=== PATIENT | male | born 1960 | race Caucasian/White ===

== ENCOUNTER → 2023-08-19 06:04 | Outpatient (REF) | payer OTHER, SELFPAY ==
[2023-08-19 09:37] LABS: % Eosinophils 1.6 % (0-6); % Immature Granulocytes 0.5 % (0-0.5); % Lymphocytes 27.3 % (20.5-51.1); % Monocytes 14.6 % (1.7-9.3); Absolute Basophils 0.1 10^3/uL (0-0.2); Absolute Eosinophils 0.1 10^3/uL (0-0.7); Absolute Lymphocytes 2.3 10^3/uL (1.2-3.4); Absolute Monocytes 1.2 10^3/uL (0.1-0.6); Absolute Neutrophils 4.6 10^3/uL (1.4-6.5); Hematocrit 47.7 % (39.0-52.0); Hemoglobin 15.3 g/dL (13.0-18.0); Mean Corp Hgb Conc. 32.1 g/dL (33.0-37.0); Mean Corpuscular Hgb 31.7 pg (27.0-31.0); Mean Corpuscular Volume 98.8 fL (80.0-94.0); Mean Platelet Volume 10.1 fL (7.4-10.4); Nucleated Red Blood Cells % 0 % (-); Platelet Count 240 10^3/uL (130-400); Red Blood Cell Count 4.83 10^6/uL (4.70-6.10); Red Cell Dist. Width 13.7 % (11.5-14.5); White Blood Cell Count 8.3 10^3/uL (4.8-10.8)
[2023-08-19 12:18] LABS: Glycohemoglobin (HgbA1c) 5.6 % (4.0-5.6)
[2023-08-19 12:43] LABS: ALT (SGPT) 21 U/L (0-50); AST (SGOT) 19 U/L (17-59); Alkaline Phosphatase 42 U/L (38-126); Blood Urea Nitrogen 15 mg/dl (9-20); Calcium 9.5 mg/dl (8.4-10.2); Carbon Dioxide 22 mmol/L (22-30); Chloride 102 mmol/L (98-107); Glucose 102 mg/dl (70-99); Iron 81 ug/dl (49-181); Potassium 4.4 mmol/L (3.5-5.1); Sodium 137 mmol/L (135-145); Total Bilirubin 0.6 mg/dl (0.2-1.3); Total Protein 6.9 g/dl (6.3-8.2); eGFR > 60.00
[2023-08-19 12:52] LABS: Percent Saturation 31 % (20-50); Total Iron Binding Capacity 254 ug/dl (261-462)
[2023-08-19 14:55] LABS: CEA 3.42 ng/ml
[2023-08-22 15:47] LABS: Hemochromatosis Specimen Whole Blood
== END ==
LOC: HWLAB 06:04
PROVIDERS: ATTENDING PHYSICIAN Family Medicine
DX: R79.89 Other specified abnormal findings of blood chemistry (principal); R73.09 Other abnormal glucose; I10 Essential (primary) hypertension; E78.5 Hyperlipidemia, unspecified; R97.0 Elevated carcinoembryonic antigen [CEA]
CPT/HCPCS: 36415; 80053; 81256; 82378; 82728; 83036; 83540; 83550; 85025

== ENCOUNTER → 2023-10-01 12:58 | Outpatient (REF) | payer OTHER, SELFPAY ==
[2023-10-01 16:45] LABS: % Basophils 0.4 % (0-2); % Eosinophils 0.4 % (0-6); % Immature Granulocytes 0.4 % (0-0.5); % Lymphocytes 22.8 % (20.5-51.1); % Monocytes 9.5 % (1.7-9.3); % Neutrophils 66.5 % (42.2-75.2); Absolute Lymphocytes 2.2 10^3/uL (1.2-3.4); Absolute Monocytes 0.9 10^3/uL (0.1-0.6); Absolute Neutrophils 6.3 10^3/uL (1.4-6.5); Hematocrit 47.1 % (39.0-52.0); Hemoglobin 15.2 g/dL (13.0-18.0); Mean Corp Hgb Conc. 32.3 g/dL (33.0-37.0); Mean Corpuscular Hgb 31.7 pg (27.0-31.0); Mean Corpuscular Volume 98.3 fL (80.0-94.0); Mean Platelet Volume 10.2 fL (7.4-10.4); Nucleated Red Blood Cells % 0 % (-); Platelet Count 212 10^3/uL (130-400); Red Blood Cell Count 4.79 10^6/uL (4.70-6.10); Red Cell Dist. Width 13.2 % (11.5-14.5); White Blood Cell Count 9.5 10^3/uL (4.8-10.8)
[2023-10-01 17:12] LABS: FSH 4.1 mIU/ml (1.55-9.74); Luteinizing Hormone 5.12 mIU/ml (1.24-7.80)
[2023-10-01 17:27] LABS: Estradiol 35.4 pg/ml (5.4-66)
[2023-10-03 18:59] LABS: % Free Testosterone 1.6 % (1.6-2.9); Free Testosterone 62 pg/mL (47-244); Sex Hormone Binding Globulin 43 nmol/L (19-76); Total Testosterone 392 ng/dL (300-720)
== END ==
LOC: HWLAB 12:58
PROVIDERS: ATTENDING PHYSICIAN Internal Medicine
DX: Z00.00 Encounter for general adult medical examination without abnormal findings (principal); E29.1 Testicular hypofunction; N52.9 Male erectile dysfunction, unspecified
CPT/HCPCS: 36415; 82670; 83001; 83002; 84146; 84270; 84402; 84403; 85025

== ENCOUNTER → 2024-03-08 10:56 | Outpatient (REF) | payer OTHER, SELFPAY ==
[2024-03-08 16:18] LABS: % Basophils 0.7 % (0-2); % Immature Granulocytes 0.4 % (0-0.5); % Lymphocytes 18.4 % (20.5-51.1); % Monocytes 11.4 % (1.7-9.3); % Neutrophils 68.1 % (42.2-75.2); Absolute Basophils 0.1 10^3/uL (0-0.2); Absolute Eosinophils 0.1 10^3/uL (0-0.7); Absolute Lymphocytes 1.8 10^3/uL (1.2-3.4); Absolute Monocytes 1.1 10^3/uL (0.1-0.6); Absolute Neutrophils 6.7 10^3/uL (1.4-6.5); Hematocrit 52.7 % (39.0-52.0); Hemoglobin 17.7 g/dL (13.0-18.0); Mean Corp Hgb Conc. 33.6 g/dL (33.0-37.0); Mean Corpuscular Hgb 32.6 pg (27.0-31.0); Mean Corpuscular Volume 97.1 fL (80.0-94.0); Mean Platelet Volume 10.4 fL (7.4-10.4); Nucleated Red Blood Cells % 0 % (-); Platelet Count 189 10^3/uL (130-400); Red Blood Cell Count 5.43 10^6/uL (4.70-6.10); Red Cell Dist. Width 13.6 % (11.5-14.5); White Blood Cell Count 9.8 10^3/uL (4.8-10.8)
[2024-03-08 16:23] LABS: Urine Albumin Negative (Neg - Trace); Urine Bilirubin Negative (Negative); Urine Character Clear (Clear); Urine Color Yellow; Urine Glucose Negative (Negative); Urine Ketone Negative (Negative); Urine Leukocyte Negative (Negative); Urine Nitrite Negative (Negative); Urine Occult Blood Negative (Negative); Urine Urobilinogen Negative (Neg - 1+)
[2024-03-08 17:30] LABS: ALT (SGPT) 22 U/L (0-50); AST (SGOT) 29 U/L (17-59); Albumin 4.2 g/dl (3.5-5.0); Alkaline Phosphatase 31 U/L (38-126); Blood Urea Nitrogen 12 mg/dl (9-20); Calcium 9.3 mg/dl (8.4-10.2); Carbon Dioxide 28 mmol/L (22-30); Chloride 99 mmol/L (98-107); Creatine Phosphokinase 231 U/L (55-170); Glucose 99 mg/dl (70-99); HDL Cholesterol 61 mg/dl; Iron 180 ug/dl (49-181); LDL Cholesterol, Calculated 40 mg/dl; Magnesium 1.7 mg/dl (1.6-2.3); Phosphorus 2.2 mg/dl (2.5-4.5); Potassium 4.5 mmol/L (3.5-5.1); Sodium 137 mmol/L (135-145); Total Bilirubin 1.8 mg/dl (0.2-1.3); Total Cholesterol 114 mg/dl (50-199); Total Protein 6.9 g/dl (6.3-8.2); Triglyceride 67 mg/dl (10-149); Uric Acid 5.5 mg/dl (3.5-8.5); Very Low Density Lipoprotein 13 mg/dl (0-30); eGFR > 60.00
[2024-03-08 17:39] LABS: Percent Saturation 60 % (20-50); Total Iron Binding Capacity 300 ug/dl (261-462)
[2024-03-08 20:40] LABS: CEA 3.64 ng/ml
[2024-03-08 20:53] LABS: Ferritin 37.8 ng/ml (17.9-464.0)
[2024-03-09 09:02] LABS: Glycohemoglobin (HgbA1c) 5.4 % (4.0-5.6)
== END ==
LOC: HWLAB 10:56
PROVIDERS: ATTENDING PHYSICIAN Family Medicine
DX: I10 Essential (primary) hypertension (principal); E78.5 Hyperlipidemia, unspecified; Z12.5 Encounter for screening for malignant neoplasm of prostate; R73.09 Other abnormal glucose; R79.89 Other specified abnormal findings of blood chemistry; R97.0 Elevated carcinoembryonic antigen [CEA]
CPT/HCPCS: 36415; 80053; 80061; 81003; 82378; 82550; 82728; 83036; 83540; 83550; 83735; 84100; 84550; 85025; G0103

== ENCOUNTER → 2024-04-16 10:45 | Outpatient (REF) | payer OTHER, SELFPAY ==
[2024-04-16 12:29] LABS: Iron 106 ug/dl (49-181)
[2024-04-16 12:40] LABS: Percent Saturation 35 % (20-50); Total Iron Binding Capacity 300 ug/dl (261-462)
[2024-04-16 13:06] LABS: Ferritin 36.7 ng/ml (17.9-464.0)
== END ==
LOC: HWLAB 10:45
PROVIDERS: ATTENDING PHYSICIAN Internal Medicine Hematology & Oncology; FAMILY PHYSICIAN Family Medicine
DX: D68.51 Activated protein C resistance (principal); D68.52 Prothrombin gene mutation; D47.2 Monoclonal gammopathy; D75.89 Other specified diseases of blood and blood-forming organs; R79.89 Other specified abnormal findings of blood chemistry
CPT/HCPCS: 82728; 83540; 83550

== ENCOUNTER 2024-06-15 12:41 | Emergency (ER) | payer OTHER, SELFPAY ==
[2024-06-15 13:17] VITALS: BP 142/105
--- NOTE | 2024-06-15 13:20 | ED.GENMED ---
ED Provider Triage
<Ama Garland NP - Last Filed: 06/15/24 13:22>
-
Patient seen by provider in Triage?: Seen in Triage
Attestation: A medical screening examination has been initiated by a qualified medical provider. Based on the assessment performed at this time, it has been determined that an emergent medical condition may exist and the patient has been informed
that further medical evaluation and possible additional diagnostic testing may be needed.
HPI: 64-year-old male with history of asbestosis, COPD, DVT on Eliquis, factor II and V deficiency presents for left chest pain and fluttering, racing feeling in his heart. This has been happening off and on for about 2 weeks. Today the pain and
fluttering was worse.
GENERAL: Alert , in no apparent distress
EYE: No visual abnormalities.
NECK: Trachea midline
ENT: No visible abnormalities.
LUNGS: No acute respiratory distress
NEUROLOGICAL: Alert and oriented
SKIN: Skin intact. No visible changes.
MUSCULOSKELETAL: Moving extremities normally
PSYCH: Normal and appropriate interaction.
This is a medical evaluation conducted in person to initiate diagnostic evaluation and provide initial therapeutics. Please see further documentation by the treating clinician.
History of Present Illness
<Ama Garland ENGINE WATCHMAN - Last Filed: 06/15/24 13:22>
General
Chief Complaint: Heart Rate Problem
Time Seen by Provider: 06/15/24 15:53
<Danny Norwood PA-C - Last Filed: 06/15/24 19:37>
General
Source: patient
History of Present Illness
History of Present Illness:
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
fluttering sensation in his chest and chest discomfort for the last 2 weeks, not any worse today however patient went to urgent care for further evaluation and was recommended to come to the ER due to his past medical history. Patient notes no
change in his medications, recent illnesses, fevers, cough, current chest pain, shortness of breath, abdominal pain or any other concerns. He does report he saw his primary care provider a little over 1 week ago but did not bring up the symptoms at
time of that visit. Patient follows with pulmonology, Dr. Vázquez, and visitor services assistant, Dr. Melgar, but has not contacted them about his current symptoms but notes the last time he saw them he was 'given a clean bill of health'.
Past History
<Ama Garland ENGINE WATCHMAN - Last Filed: 06/15/24 13:22>
Past History
ED Past Medical History: COPD and Other (DVT R leg, Factor II and V blood dyscrasia, peripheral vascular disease); Negative HTN, Hypercholesterolemia or NIDDM
ED Past Surgical History: Other (Spinal fusion)
Social History
Tobacco: Former smoker
Alcohol: Occasional
Personal:
Living: with family
<Danny Norwood PA-C - Last Filed: 06/15/24 19:37>
Past History
ED Past Medical History: CAD and Psychiatric
ED Past Surgical History: Cardiac, Tonsilectomy and Urological
Social History
Drug: None
Review of Systems
<Danny Norwood PA-C - Last Filed: 06/15/24 19:37>
Review of Systems
All Other Systems: ROS reviewed and negative except as documented in HPI and ROS
Phy Exam
<Danny Norwood PA-C - Last Filed: 06/15/24 19:37>
Physical Exam
Physical Exam:
GENERAL: Alert , in no apparent distress
EYE: Clear conjunctiva
NECK: Supple
ENT: o/p clr, mmm.
CARDIAC: Regular rate and rhythm, occasional ectopy/PVC on telemetry.
LUNGS: Clear breath sounds bilaterally although slightly restricted bilaterally, no acute respiratory distress, no wheezes/rales/rhonchi
ABDOMEN: Soft, without focal tenderness, no r/g, no cvat
NEUROLOGICAL: Alert and oriented
SKIN: Warm and dry, skin intact.
MUSCULOSKELETAL: No edema, well perfused.
PSYCH: Normal and appropriate interaction.
Scores
<Danny Norwood PA-C - Last Filed: 06/15/24 19:37>
Heart Score for Chest Pain Patients
STEMI patient?: No
History: Slightly or Non-Suspicious
ECG: Normal
Age: >/= 65 years
Risk Factors: >/= 3 Risk Factors or History of CAD
Troponin: </= Normal Limit
Heart Score for Chest Pain Patients: 4
Heart Score Risk: 20.3% MACE over next 6 weeks
Course
<Ama Garland NP - Last Filed: 06/15/24 13:22>
Orders/Labs/Results
Orders:
Orders
06/15/24 12:42
Electrocardiogram (*1) Urgent
Reason for Study: Tachycardia
EKG- Treatment ONCE
06/15/24 13:27
Comprehensive Metabolic Panel Urgent
Prothrombin Time Urgent
Troponin I Urgent
06/15/24 13:28
Complete Blood Count/With Diff Urgent
06/15/24 16:11
CR Chest - 2 Views Urgent
Comment:
Reason For Exam: chest pain, palpitations
06/15/24 16:43
Troponin I Urgent
Abnormal Lab Results
06/15/24 06/15/24
13:27 13:28
Hgb 18.6 H g/dL
(13.0-18.0)
Hct 54.0 H %
(39.0-52.0)
MCV 94.4 H fL
(80.0-94.0)
MCH 32.5 H pg
(27.0-31.0)
Abs Immat Gran (auto) 0.1 H 10^3/uL
(0-0.05)
Absolute Neuts (auto) 6.9 H 10^3/uL
(1.4-6.5)
Absolute Monos (auto) 1.0 H 10^3/uL
(0.1-0.6)
Immature Gran % 0.6 H %
(0-0.5)
Monocytes % 9.6 H %
(1.7-9.3)
Glucose 111 H mg/dl
(70-99)
06/15/24 13:28
06/15/24 13:27
Vital Signs
Initial and Last Documented VS:
Initial Vital Signs
Temp Pulse Resp BP Pulse Ox
97.9 F 90 17 142/105 99
06/15/24 13:17 06/15/24 13:17 06/15/24 13:17 06/15/24 13:17 06/15/24 13:17
Last Documented Vital Signs
Temp Pulse Resp BP Pulse Ox
97.9 F 82 18 147/90 98
06/15/24 13:17 06/15/24 15:33 06/15/24 15:33 06/15/24 15:33 06/15/24 15:44
<Danny Norwood PA-C - Last Filed: 06/15/24 19:37>
Orders/Labs/Results
Orders:
Orders
06/15/24 12:42
Electrocardiogram (*1) Urgent
Reason for Study: Tachycardia
EKG- Treatment ONCE
06/15/24 13:27
Comprehensive Metabolic Panel Urgent
Prothrombin Time Urgent
Troponin I Urgent
06/15/24 13:28
Complete Blood Count/With Diff Urgent
06/15/24 16:11
CR Chest - 2 Views Urgent
Comment:
Reason For Exam: chest pain, palpitations
06/15/24 16:43
Troponin I Urgent
Abnormal Lab Results
06/15/24 06/15/24
13:27 13:28
Hgb 18.6 H g/dL
(13.0-18.0)
Hct 54.0 H %
(39.0-52.0)
MCV 94.4 H fL
(80.0-94.0)
MCH 32.5 H pg
(27.0-31.0)
Abs Immat Gran (auto) 0.1 H 10^3/uL
(0-0.05)
Absolute Neuts (auto) 6.9 H 10^3/uL
(1.4-6.5)
Absolute Monos (auto) 1.0 H 10^3/uL
(0.1-0.6)
Immature Gran % 0.6 H %
(0-0.5)
Monocytes % 9.6 H %
(1.7-9.3)
Glucose 111 H mg/dl
(70-99)
06/15/24 13:28
06/15/24 13:27
Vital Signs
Initial and Last Documented VS:
Initial Vital Signs
Temp Pulse Resp BP Pulse Ox
97.9 F 90 17 142/105 99
06/15/24 13:17 06/15/24 13:17 06/15/24 13:17 06/15/24 13:17 06/15/24 13:17
Last Documented Vital Signs
Temp Pulse Resp BP Pulse Ox
97.9 F 82 18 147/90 98
06/15/24 13:17 06/15/24 15:33 06/15/24 15:33 06/15/24 15:33 06/15/24 15:44
<Danny Norwood PA-C - Last Filed: 06/15/24 19:37>
MDM/Problems Addressed
Differential Diagnosis Includes:
Cardiac dysrhythmia, PVCs/PAC, valvular dysfunction, ACS, COPD, PE considered however given patient on Eliquis combined with presenting symptoms less suspicious for this, less concern for anxiety/panic disorder although patient does note he has been
anxious with the symptoms
MDM/Problems Addressed:
64-year-old male presenting to the ER for evaluation of palpitations and chest discomfort intermittently over the last 2 weeks. Urgent care patient to the ER today. Patient found to be mildly hypertensive on arrival although improved at time of my
exam. He is otherwise hemodynamically stable. Patient with CAD risk factors due to known CAD status post CABG. Initial troponin negative. Labs otherwise reassuring. Will repeat troponin and obtain chest x-ray. Will also notify patient's
visitor services assistant with anticipation of close outpatient follow-up via the chest pain hotline.
Chronic conditions affecting care: CAD and COPD
<Danny Norwood PA-C - Last Filed: 06/15/24 19:37>
*Radiology
Radiology exam reviewed: preliminary read by ED provider (Normal chest x-ray)
*Pulse Oximetry
Patient hypoxic: no
*EKG
Interpreted by ED Provider?: Yes
Heart Rate: 82
Rate: normal
Rhythm: sinus and PVC's
[place]: left axis deviation
QRS Pattern: right bundle branch block
*Critical Care Note
Total Time (30-74mins, 75-104mins- exclusive of procedures): Not Applicable
<Danny Norwood PA-C - Last Filed: 06/15/24 19:37>
Patient Management
Discussion with other providers: System Planning Engineer
Escalation/DeEscalation of care consider admission/obs:
Patient's repeat troponin and chest x-ray are unremarkable. I did notify his visitor services assistant, Dr. Melgar, who will help expedite outpatient follow-up. Patient aware of return precautions to the ER.
ED Attending Note
<Ama Garland ENGINE WATCHMAN - Last Filed: 06/15/24 13:22>
-
Portions of this chart may have been created with voice recognition software.� Occasional wrong word or��sound alike� substitutions may have occurred due to the inherent limitations of voice recognition software.
Discharge Plan
Departure
Patient Disposition: Home (Routine Discharge)
Date of Disposition: 06/15/24
Time of Disposition: 17:19
Patient with high blood pressure during this ER visit?: Yes
Discharge Problem:
Heart palpitations, Frequent PVCs
Instructions: Chest Pain DCA Follow Up
Prescriptions:
No Action
alprazolam 1 MG tablet
0.5 - 1 mg PO DAILYPRN PRN (Reason: anxiety)
oxycodone 15 MG tablet
15 mg PO TIDPRN PRN (Reason: neck pain)
umeclidinium [Incruse Ellipta] 62.5 MCG blister with device
2 puff IH DAILY
Breo Ellipta 100-25 Mcg INH
2 puff inhalation DAILY
Patient Comments:
dose unconfirmed
Melatonin
1 tab PO HS PRN (Reason: sleep)
furosemide 40 MG tablet
40 mg PO DAILY Qty: 7 0RF
Rx Instructions:
take for 7 days then stop
acetaminophen 325 MG tablet
650 mg PO Q4HPRN PRN (Reason: HEADACHE OR FEVER > 101F) 0RF
diltiazem HCl 180 MG capsule,extended release 24hr
180 mg PO DAILY Qty: 30 0RF
Rx Instructions:
take for 30 days then stop
aspirin 81 MG tablet,delayed release (DR/EC)
81 mg PO DAILY 0RF
potassium chloride [Klor-Con M20] 20 MEQ tablet,ER particles/crystals
20 meq PO DAILY Qty: 7 0RF
Rx Instructions:
take for 7 days then stop
pantoprazole 40 MG tablet,delayed release (DR/EC)
40 mg PO DAILY Qty: 30 0RF
Rx Instructions:
take for 30 days then stop
rosuvastatin 10 MG tablet
10 mg PO QPM Qty: 90 1RF
metoprolol tartrate 25 MG tablet
25 mg PO BID Qty: 180 1RF
apixaban [Eliquis] 5 MG tablet
5 mg PO BID Qty: 60 0RF
Rx Instructions:
take for 30 days, then resume previously prescribed dose of 2.5mg BID
albuterol sulfate 1 PUFF HFA aerosol inhaler
1 puff inhalation R Q4HPRN PRN (Reason: asthma exacerbation) Qty: 1 3RF
Referrals:
UNKNOWN - PT DOES,NOT KNOW [Unknown Provider] -
Interventions
Interventions:
*Risk Screen - Suicide Last Done: 06/15/24 13:18
*General Assessment Last Done: 06/15/24 13:18
*Neglect/Abuse Screening Last Done: 06/15/24 13:18
ED- Fall Risk Assessment Last Done: 06/15/24 15:44
*ED COVID-19 Vaccine History Last Done: 06/15/24 13:18
*Nursing Disposition Last Done: 06/15/24 17:30
ED- Cardiac Assessment Last Done: 06/15/24 15:44
ED- Pulmonary Assessment Last Done: 06/15/24 15:44
Discharge Date and Time
Discharge Date/Time: 06/15/24 17:30
Print Language: [place]
[2024-06-15 13:43] LABS: % Basophils 0.9 % (0-2); % Eosinophils 0.7 % (0-6); % Immature Granulocytes 0.6 % (0-0.5); % Lymphocytes 21.1 % (20.5-51.1); % Monocytes 9.6 % (1.7-9.3); % Neutrophils 67.1 % (42.2-75.2); Absolute Basophils 0.1 10^3/uL (0-0.2); Absolute Eosinophils 0.1 10^3/uL (0-0.7); Absolute Immature Granulocytes 0.1 10^3/uL (0-0.05); Absolute Lymphocytes 2.2 10^3/uL (1.2-3.4); Absolute Neutrophils 6.9 10^3/uL (1.4-6.5); Hemoglobin 18.6 g/dL (13.0-18.0); Mean Corp Hgb Conc. 34.4 g/dL (33.0-37.0); Mean Corpuscular Hgb 32.5 pg (27.0-31.0); Mean Corpuscular Volume 94.4 fL (80.0-94.0); Mean Platelet Volume 9.6 fL (7.4-10.4); Nucleated Red Blood Cells % 0 % (-); Platelet Count 198 10^3/uL (130-400); Red Blood Cell Count 5.72 10^6/uL (4.70-6.10); Red Cell Dist. Width 12.6 % (11.5-14.5); White Blood Cell Count 10.2 10^3/uL (4.8-10.8)
[2024-06-15 13:53] LABS: ALT (SGPT) 21 U/L (0-50); AST (SGOT) 24 U/L (17-59); Albumin 4.5 g/dl (3.5-5.0); Alkaline Phosphatase 47 U/L (38-126); Blood Urea Nitrogen 19 mg/dl (9-20); Calcium 9.6 mg/dl (8.4-10.2); Carbon Dioxide 28 mmol/L (22-30); Chloride 102 mmol/L (98-107); Glucose 111 mg/dl (70-99); Potassium 4.6 mmol/L (3.5-5.1); Sodium 140 mmol/L (135-145); Total Bilirubin 1.3 mg/dl (0.2-1.3); Total Protein 7.7 g/dl (6.3-8.2); eGFR > 60.00
[2024-06-15 13:56] LABS: INR 1.06; PT 14.1 Sec (11.4-14.6)
[2024-06-15 14:05] LABS: Troponin I < 0.012 ng/ml
[2024-06-15 15:33] VITALS: BP 147/90
[2024-06-15 17:14] LABS: Troponin I < 0.012 ng/ml
== END 2024-06-15 17:30 | disposition home or self-care (01) ==
LOC: EMR 12:41
PROVIDERS: Physician Assistant Medical; Registered Nurse; EMERGENCY PHYSICIAN Emergency Medicine; FAMILY PHYSICIAN Family Medicine
DX: R00.2 Palpitations (principal); R07.89 Other chest pain; I49.3 Ventricular premature depolarization; I45.10 Unspecified right bundle-branch block; I25.10 Atherosclerotic heart disease of native coronary artery without angina pectoris; D68.2 Hereditary deficiency of other clotting factors; I73.9 Peripheral vascular disease, unspecified; J44.9 Chronic obstructive pulmonary disease, unspecified; Z98.1 Arthrodesis status; Z95.1 Presence of aortocoronary bypass graft; Z86.718 Personal history of other venous thrombosis and embolism; Z87.891 Personal history of nicotine dependence; Z79.01 Long term (current) use of anticoagulants
CPT/HCPCS: 99283; 71046; 80053; 84484; 85025; 85610; 93005

== ENCOUNTER → 2024-09-01 10:18 | Outpatient (REF) | payer OTHER, SELFPAY ==
[2024-09-01 12:29] LABS: ALT (SGPT) 22 U/L (0-50); AST (SGOT) 24 U/L (17-59); Albumin 3.7 g/dl (3.5-5.0); Alkaline Phosphatase 44 U/L (38-126); Alkaline Phosphatase, Total 44 U/L (38-126); Creatine Phosphokinase 46 U/L (55-170); Direct Bilirubin 0.3 mg/dl (0.0-0.4); GGTP 23 U/L (15-73); HDL Cholesterol 61 mg/dl; LDL Cholesterol, Calculated 63 mg/dl; Total Cholesterol 142 mg/dl (50-199); Total Protein 6.6 g/dl (6.3-8.2); Triglyceride 92 mg/dl (10-149); Very Low Density Lipoprotein 18 mg/dl (0-30)
[2024-09-01 20:04] LABS: Alk Phos After Heat < 20
== END ==
LOC: HWLAB 10:18
PROVIDERS: ATTENDING PHYSICIAN Family Medicine
DX: R74.8 Abnormal levels of other serum enzymes (principal); E78.5 Hyperlipidemia, unspecified; R17 Unspecified jaundice
CPT/HCPCS: 36415; 80061; 80076; 82550; 82977; 84078

== ENCOUNTER → 2024-11-02 07:00 | Outpatient (REF) | payer OTHER, SELFPAY ==
[2024-11-02 09:34] LABS: % Basophils 1.2 % (0-2); % Eosinophils 1.8 % (0-6); % Immature Granulocytes 0.7 % (0-0.5); % Lymphocytes 37.5 % (20.5-51.1); % Monocytes 14.5 % (1.7-9.3); % Neutrophils 44.3 % (42.2-75.2); Absolute Basophils 0.1 10^3/uL (0-0.2); Absolute Eosinophils 0.1 10^3/uL (0-0.7); Absolute Immature Granulocytes 0.1 10^3/uL (0-0.05); Absolute Lymphocytes 2.8 10^3/uL (1.2-3.4); Absolute Monocytes 1.1 10^3/uL (0.1-0.6); Absolute Neutrophils 3.4 10^3/uL (1.4-6.5); Hematocrit 50.1 % (39.0-52.0); Hemoglobin 16.9 g/dL (13.0-18.0); Mean Corp Hgb Conc. 33.7 g/dL (33.0-37.0); Mean Corpuscular Hgb 32.5 pg (27.0-31.0); Mean Corpuscular Volume 96.3 fL (80.0-94.0); Mean Platelet Volume 9.6 fL (7.4-10.4); Nucleated Red Blood Cells % 0 % (-); Platelet Count 226 10^3/uL (130-400); Red Cell Dist. Width 12.7 % (11.5-14.5); White Blood Cell Count 7.6 10^3/uL (4.8-10.8)
[2024-11-04 01:51] LABS: IgA 217 mg/dl (70-400); IgG 1445 mg/dl (700-1600); IgM 39 mg/dl (40-230)
[2024-11-04 18:35] LABS: Alternaria tenuis <0.10 kU/L (<=0.34); Aspergillus fumigatus <0.10 kU/L (<=0.34); Bermuda Grass <0.10 kU/L (<=0.34); Birch Tree <0.10 kU/L (<=0.34); Box Elder/Maple Tree <0.10 kU/L (<=0.34); Cat Epithelium/Dander <0.10 kU/L (<=0.34); Common Pigweed <0.10 kU/L (<=0.34); Common/Short Ragweed 0.17 kU/L (<=0.34); Cottonwood Tree <0.10 kU/L (<=0.34); Dermatophagoides farinae <0.10 kU/L (<=0.34); Dermatophagoides pteronyssinus <0.10 kU/L (<=0.34); Dog Dander <0.10 kU/L (<=0.34); Elm Tree <0.10 kU/L (<=0.34); German Cockroach <0.10 kU/L (<=0.34); Hormodendrum <0.10 kU/L (<=0.34); IgE 89 kU/L (<=214); Mountain Cedar Tree <0.10 kU/L (<=0.34); Mouse Epithelium <0.10 kU/L (<=0.34); Mucor racemosus <0.10 kU/L (<=0.34); Mugwort Weed <0.10 kU/L (<=0.34); Oak Tree <0.10 kU/L (<=0.34); Penicillium notatum <0.10 kU/L (<=0.34); Sheep Sorrel Weed <0.10 kU/L (<=0.34); Sycamore Tree <0.10 kU/L (<=0.34); Timothy Grass <0.10 kU/L (<=0.34); Walnut Tree <0.10 kU/L (<=0.34); White Ash Tree <0.10 kU/L (<=0.34); White Mulberry Tree <0.10 kU/L (<=0.34)
== END ==
LOC: HWLAB 07:00
PROVIDERS: ATTENDING PHYSICIAN Internal Medicine Critical Care Medicine; FAMILY PHYSICIAN Family Medicine
DX: J45.40 Moderate persistent asthma, uncomplicated (principal); J30.2 Other seasonal allergic rhinitis
CPT/HCPCS: 36415; 82103; 82104; 82784; 82785; 85025; 86003; 86331; 86606

== ENCOUNTER → 2024-11-12 08:30 | Outpatient (REF) | payer OTHER, SELFPAY | LOC: HWRAD 08:30 | PROVIDERS: ATTENDING PHYSICIAN Internal Medicine Critical Care Medicine; FAMILY PHYSICIAN Family Medicine | DX: J47.9 Bronchiectasis, uncomplicated (principal); R04.2 Hemoptysis; R91.8 Other nonspecific abnormal finding of lung field | CPT/HCPCS: 71250 ==

== ENCOUNTER 2025-02-15 14:01 | Emergency (ER) | payer OTHER, SELFPAY ==
[2025-02-15 14:04] VITALS: BP 140/99
[2025-02-15 14:26] LABS: Hematocrit 47.2 % (39.0-52.0); Hemoglobin 15.9 g/dL (13.0-18.0); Mean Corp Hgb Conc. 33.7 g/dL (33.0-37.0); Mean Corpuscular Volume 93.5 fL (80.0-94.0); Nucleated Red Blood Cells % 0 % (-); Platelet Count 192 10^3/uL (130-400); Red Cell Dist. Width 12.8 % (11.5-14.5)
[2025-02-15 14:43] LABS: ALT (SGPT) 18 U/L (0-50); AST (SGOT) 21 U/L (17-59); Albumin 4.4 g/dl (3.5-5.0); Alkaline Phosphatase 32 U/L (38-126); Blood Urea Nitrogen 18 mg/dl (9-20); Calcium 9.0 mg/dl (8.4-10.2); Carbon Dioxide 26 mmol/L (22-30); Chloride 106 mmol/L (98-107); Glucose 97 mg/dl (70-99); Potassium 4.4 mmol/L (3.5-5.1); Sodium 137 mmol/L (135-145); Total Protein 7.4 g/dl (6.3-8.2); eGFR > 60.00
[2025-02-15 15:02] LABS: Troponin I < 0.012 ng/ml
--- NOTE | 2025-02-15 23:43 | ED.GENMED ---
History of Present Illness
General
Chief Complaint: Breathing Problem
Source: patient
Exam Limitations: none
Time Seen by Provider: 02/15/25 16:48
Nursing documentation reviewed up to this point in time: agreed with
History of Present Illness
History of Present Illness:
Patient states he was seen by podiatry today for eval of bilateral feet pain. He has had pain to his feet in the past. States he used inserts, changed up his shoes and his pain diminished. Recently he went bowling and since then has had pain. He
also notes increasing SOB with activity and BLE calf pain with activty. He was given rx by podiatry for arterial doppler and this was scheduled for next week. Sent to because of decreased pulseson left foot. Brought self to ED for eval.
Past History
Past History
ED Past Medical History: CAD, COPD, Psychiatric and Other (DVT R leg, Factor II and V blood dyscrasia, peripheral vascular disease); Negative HTN, Hypercholesterolemia or NIDDM
ED Past Surgical History: Cardiac, Tonsilectomy, Urological and Other (Spinal fusion)
Social History
Tobacco: Former smoker
Alcohol: Occasional
Drug: None
Personal:
Living: with family
Review of Systems
Review of Systems
Allergies reviewed?: Yes
All Other Systems: ROS reviewed and negative except as documented in HPI and ROS
Constitutional: Reports no symptoms
EENT: Reports no symptoms
Respiratory: Reports trouble breathing (OSEGUERA)
Cardiac: Reports no symptoms
ABD/GI: Reports no symptoms
: Reports no symptoms
Musculoskeletal: Reports muscle pain (calf pain with ambulation)
Skin: Reports no symptoms
Neurological: Reports no symptoms
Psychiatric: Reports no symptoms
Phy Exam
General Physical Exam
General Presentation: well appearing and no apparent distress
General age: appears stated age
General Skin: warm and dry
General Habitus: normal
General Mental: alert
Cardiovascular Exam
Cardiovascular Exam: regular rate/rhythm and no edema
Pulmonary Exam
Pulmonary Exam: no respiratory distress, chest non tender and decreased breath sounds
Neurological Exam
Neurological Exam: alert and oriented x3
Musculoskeletal Exam
Musculoskeletal Exam: full ROM and neuro vasc intact (Right DP palpable. Left DP/PT, right PT obtained by doppler. Cap refill <5 seconds. Sensation intact. BLE warm to touch)
Skin Exam
Skin Exam: normal color, warm/dry and no rash
Psychiatric Exam
Psychiatric Exam: normal mood/affect
Scores
Heart Failure Risk
Heart Failure Risk Score: Not Applicable
Course
Orders/Labs/Results
Orders:
Orders
02/15/25 14:09
US Periph Venous LOWER Ext Phillip Urgent
Comment:
Reason For Exam: swelling, calf pain
02/15/25 14:12
EKG [Electrocardiogram (*1)] Urgent
Reason for Study: Shortness of Breath
EKG- Treatment ONCE
02/15/25 14:19
BNP [NT-proBNP] Urgent
Complete Blood Count/With Diff Urgent
Comprehensive Metabolic Panel Urgent
Troponin I Routine
02/15/25 17:08
CT Chest PE Study Urgent
Comment:
Reason For Exam: SOB, hx DVT
Abnormal Lab Results
02/15/25
14:19
MCH 31.5 H pg
(27.0-31.0)
Absolute Monos (auto) 1.1 H 10^3/uL
(0.1-0.6)
Monocytes % 13.3 H %
(1.7-9.3)
Alkaline Phosphatase 32 L U/L
(38-126)
02/15/25 14:19
02/15/25 14:19
Vital Signs
Initial and Last Documented VS:
Initial Vital Signs
Temp Pulse Resp BP Pulse Ox
97.9 F 74 16 140/99 97
02/15/25 14:04 02/15/25 14:04 02/15/25 14:04 02/15/25 14:04 02/15/25 14:04
Last Documented Vital Signs
Temp Pulse Resp BP Pulse Ox
97.9 F 74 16 140/99 97
02/15/25 14:04 02/15/25 14:04 02/15/25 14:04 02/15/25 14:04 02/15/25 23:51
*Radiology
Radiology exam reviewed: radiology read reviewed
*Pulse Oximetry
SaO2: 97
Oxygen Mode of Delivery: Room air
Patient hypoxic: no
*Critical Care Note
Total Time (30-74mins, 75-104mins- exclusive of procedures): Not Applicable
Update Note
Update Note:
Patient to ED wtih report of worsening OSEGUERA, bilateral feet pain, bilateral calf muscle cramps. History of COPD. Using inhalers as directed. lungs with decreased breathsounds but clear. CT chest neg for acute findings. BLE US neg for DVT. Left
DP/PT, right PT obtained wtih doppler. Right DP palpable He as and arterial doppler scheduled for next week. Will given number for vascular to follow up in office. Suspect claudication from PAD. He is dischaged home. Given instructions on s/s
to rturn to ED and he is agreeable to plan.
ED Attending Note
-
Portions of this chart may have been created with voice recognition software.� Occasional wrong word or��sound alike� substitutions may have occurred due to the inherent limitations of voice recognition software.
Discharge Plan
Departure
Patient Disposition: Home (Routine Discharge)
Date of Disposition: 02/15/25
Time of Disposition: 18:49
Patient with high blood pressure during this ER visit?: No
Condition: Good
Covid-19: Not Applicable
Discharge Problem:
OSEGUERA (dyspnea on exertion), Claudication, intermittent
Instructions: Peripheral artery disease and claudication, Shortness of Breath (Dyspnea) (DC)
Prescriptions:
No Action
alprazolam 1 MG tablet
0.5 - 1 mg PO DAILYPRN PRN (Reason: anxiety)
oxycodone 15 MG tablet
15 mg PO TIDPRN PRN (Reason: neck pain)
umeclidinium [Incruse Ellipta] 62.5 MCG blister with device
2 puff IH DAILY
Breo Ellipta 100-25 Mcg INH
2 puff inhalation DAILY
Patient Comments:
dose unconfirmed
Melatonin
1 tab PO HS PRN (Reason: sleep)
furosemide 40 MG tablet
40 mg PO DAILY Qty: 7 0RF
Rx Instructions:
take for 7 days then stop
acetaminophen 325 MG tablet
650 mg PO Q4HPRN PRN (Reason: HEADACHE OR FEVER > 101F) 0RF
diltiazem HCl 180 MG capsule,extended release 24hr
180 mg PO DAILY Qty: 30 0RF
Rx Instructions:
take for 30 days then stop
aspirin 81 MG tablet,delayed release (DR/EC)
81 mg PO DAILY 0RF
potassium chloride [Klor-Con M20] 20 MEQ tablet,ER particles/crystals
20 meq PO DAILY Qty: 7 0RF
Rx Instructions:
take for 7 days then stop
pantoprazole 40 MG tablet,delayed release (DR/EC)
40 mg PO DAILY Qty: 30 0RF
Rx Instructions:
take for 30 days then stop
rosuvastatin 10 MG tablet
10 mg PO QPM Qty: 90 1RF
metoprolol tartrate 25 MG tablet
25 mg PO BID Qty: 180 1RF
apixaban [Eliquis] 5 MG tablet
5 mg PO BID Qty: 60 0RF
Rx Instructions:
take for 30 days, then resume previously prescribed dose of 2.5mg BID
albuterol sulfate 1 PUFF HFA aerosol inhaler
1 puff inhalation R Q4HPRN PRN (Reason: asthma exacerbation) Qty: 1 3RF
Referrals:
Anthony Salcedo DO [Family Provider, Family Practice]
Judith Biggs MD [Active, Vascular Surgery] - Next open appointment
Activity Restrictions/Additional Instructions:
Complete the arterial studies of your legs as scheduled. Schedule a follow up appointment with Vasculary surgery. Return to the emergency department immediately for any changes in/worsening of your symtoms
Interventions
Interventions:
*Risk Screen - Suicide Last Done: 02/15/25 14:04
*General Assessment Last Done: 02/15/25 14:04
*Neglect/Abuse Screening Last Done: 02/15/25 14:04
*ED- Fall Risk Assessment Last Done: 02/15/25 19:07
*ED COVID-19 Vaccine History Last Done: 02/15/25 14:04
*ED Influenza Vaccine History Last Done: 02/15/25 14:04
*Nursing Disposition Last Done: 02/15/25 19:07
ED- Cardiac Assessment Last Done: 02/15/25 18:58
ED- Pulmonary Assessment Last Done: 02/15/25 18:58
Discharge Date and Time
Discharge Date/Time: 02/15/25 19:07
Print Language: [place]
== END 2025-02-15 19:07 | disposition home or self-care (01) ==
LOC: EMR 14:01
PROVIDERS: Emergency Medicine; EMERGENCY PHYSICIAN Emergency Medicine; FAMILY PHYSICIAN Family Medicine
DX: R06.00 Dyspnea, unspecified (principal); I73.9 Peripheral vascular disease, unspecified; I25.10 Atherosclerotic heart disease of native coronary artery without angina pectoris; J44.9 Chronic obstructive pulmonary disease, unspecified; D68.2 Hereditary deficiency of other clotting factors; Z79.82 Long term (current) use of aspirin; Z86.718 Personal history of other venous thrombosis and embolism; Z87.891 Personal history of nicotine dependence
CPT/HCPCS: 99284; 71275; 80053; 83880; 84484; 85025; 93005; 93970; Q9967

== ENCOUNTER → 2025-03-01 08:29 | Outpatient (REF) | payer OTHER, SELFPAY | LOC: RAD 08:29 | PROVIDERS: ATTENDING PHYSICIAN Podiatrist; FAMILY PHYSICIAN Family Medicine | DX: I73.9 Peripheral vascular disease, unspecified (principal) | CPT/HCPCS: 93922; 93925 ==

== ENCOUNTER 2025-04-15 08:34 | Outpatient (RCR) | payer OTHER, SELFPAY | END 2025-04-15 23:59 | disposition home or self-care (01) | LOC: CRHB 08:34 | PROVIDERS: ATTENDING PHYSICIAN Surgery Vascular Surgery | DX: I70.211 Atherosclerosis of native arteries of extremities with intermittent claudication, right leg (principal) | CPT/HCPCS: 93668; G0422; G0423 ==

== ENCOUNTER 2025-05-09 09:16 | Outpatient (RCR) | payer OTHER, SELFPAY | END 2025-05-09 23:59 | disposition home or self-care (01) | LOC: CRHB 09:16 | PROVIDERS: ATTENDING PHYSICIAN Surgery Vascular Surgery | DX: I70.211 Atherosclerosis of native arteries of extremities with intermittent claudication, right leg (principal) | CPT/HCPCS: 93668 ==